=== PATIENT | female | born 1935 | race Caucasian/White ===

== ENCOUNTER 2019-08-22 10:49 | Inpatient (IN) ==
[2019-08-22 12:01] LABS: BASO# 0.01 X1000 (0.0-0.2); BASO% 0.1 % (0.0-0.8); EOS# 0.03 X1000 (0.0-0.7); EOS% 0.3 % (0.0-10.0); HEMATOCRIT 36.1 % (37.0-47.0); HEMOGLOBIN 11.7 g/dL (12.0-16.0); IMM GRAN# 0.02 X1000 (0.0-0.04); IMM GRAN% 0.2 % (0.0-0.5); LYMPH# 0.44 X1000 (1.2-3.4); LYMPH% 4.4 % (20.5-51.1); MCH 31.8 PG (27-31); MCHC 32.4 g/dL (33-37); MCV 98.1 FL (81-99); MONO# 0.75 X1000 (0.11-0.59); MONO% 7.4 % (1.7-9.3); MPV 9.5 FL (7.4-10.4); NEUT# 8.84 X1000 (1.4-6.5); NEUT% 87.6 % (42.2-75.2); PLT 351 X1000 (130-400); RBC 3.68 XMIL (4.2-5.4); RDW 12.8 % (11.5-14.5); WBC 10.09 X1000 (4.8-10.8)
[2019-08-22 12:11] LABS: ALBUMIN 3.4 g/dL (3.5-5.0); CALCIUM 8.8 mg/dL (8.8-10.2); CREATININE 1.1 mg/dL (0.5-0.9); POTASSIUM 5.1 mmol/L (3.5-5.1); TOTAL BILIRUBIN 0.5 mg/dL (0.20-1.00)
[2019-08-22] MEDS ORDERED: LEVAQUIN 500 MG/D5W 500 MG/100 ML IVPB IV ONE (12:11)
--- NOTE | 2019-08-22 12:11 | Diag Imaging Result Doc PS360 ---
EXAM: CHEST-2 VIEWS HISTORY: SOB TECHNIQUE: Two views COMPARISON: 09/01/2012 FINDINGS: There is a moderate-sized right pleural effusion with basilar atelectasis and pneumonia. The heart is enlarged. There is a left-sided pacemaker. No pulmonary edema. No left pleural effusion. Compressed T12 vertebra. Prominent atherosclerosis. IMPRESSION: 1.Right pleural effusion with basilar atelectasis and infiltrates 2.Cardiomegaly 3.Compressed T12 vertebra Electronically signed by Floyd Eason 08/22/2019 12:08 PM
--- NOTE | 2019-08-22 12:16 | PROVIDER DOCUMENTATION ---
This chart was entered by Sima Sebastian Scribe, acting as scribe for China Smyth CRNP. HPI-Respiratory General - General Chief Complaint: Shortness of Breath Stated Complaint: SOB Time Seen by Provider: 08/22/19 11:05 Source: patient Allergies/Adverse Reactions: Patient Allergies Allergy/AdvReac Type Severity Reaction Status Date / Time Penicillins Allergy Unknown Unknown Verified 09/01/12 10:12 Sulfa (Sulfonamide Allergy Unknown Unknown Verified 09/01/12 10:12 Antibiotics) Home Medications: Home Medication List Medication Instructions Recorded Confirmed Last Taken Type Amlodipine [Norvasc] 10 mg PO DAILY 08/22/19 08/22/19 08/22/19 History Capecitabine [Xeloda] 1,500 mg PO DIRECTED 08/22/19 08/22/19 Unknown History Carvedilol 6.25 mg PO DAILY 08/22/19 08/22/19 08/22/19 History CefDINIR [Omnicef] 300 mg PO BID 08/22/19 08/22/19 Unknown History Levofloxacin [Levaquin] 500 mg PO DAILY 08/22/19 08/22/19 Unknown History Metoclopramide [Reglan] 10 mg PO Q6H PRN PRN 08/22/19 08/22/19 Unknown History Ondansetron HCl [Zofran] 4 mg PO Q6H PRN PRN 08/22/19 08/22/19 Unknown History - History of Present Illness-Resp Nature of Presenting Problem: 84yof presents to ED cc congested cough and SOB that is getting worse since onset Sunday. Pt reports she was recently treated with Cefdenir & Levaquin for Sinusitis but was unable to take correctly. Pt is ill appearing but in no acute distress upon exam. She does have breast cancer and is being treated with PO chemo by Dr. Kraus. Severity in ED: reports: moderate Onset/Duration: reports: 2 days ago Timing: reports: still present Cough Quality/Degree: reports: moderate Current Respiratory Medication Therapy: Initiated see nurses note Associated Symptoms: reports: cough, shortness of breath, short of breath Similar Symptoms Previously?: Yes Recently seen or treated by another doctor?: Yes (recently saw PCP) Review of Systems - Adult - REVIEW OF SYSTEMS - ADULT Constitutional: reports: see HPI. denies: chills, fever, fatique Eyes: reports: no symptoms reported Ears, Nose, Mouth & Throat: reports: no symptoms reported Cardiovascular: reports: no symptoms reported Respiratory: reports: see HPI, cough (congested), shortness of breath. denies: wheezing Gastrointestinal: reports: no symptoms reported Genitourinary: reports: no symptoms reported Musculoskeletal: reports: no symptoms reported Integumentary: reports: no symptoms reported Neurological: reports: no symptoms reported Psychiatric: reports: no symptoms reported Endocrine: reports: no symptoms reported Hematologic/Lymphatic: reports: no symptoms reported Allergic/Immunologic: reports: no symptoms reported All Other Systems: Reviewed and Negative Past History - Adult - PAST MEDICAL HISTORY-ADULT Review of Records: reports: Nursing Assessment Review, Medications Reviewed, Social history reviewed & non-contributory. Major Childhood Illnesses: reports: denies history Cardiovascular: reports: denies history Respiratory: reports: denies history Gastrointestinal: reports: denies history Obstetrical/Gynecological: reports: denies history Genitourinary: reports: denies history Musculoskeletal: reports: denies history Neurological: reports: denies history Endocrine/Immune: reports: denies history Other Conditions: reports: denies history - IMMUNIZATION STATUS Childhood Immunizations: See Nurse Assessment Flu Vaccine: See Nurse Assessment - FAMILY HISTORY Family History: reviewed, not pertinent - SOCIAL HISTORY Smoking: denies Physical Exam-General - PHYSICAL EXAM-ADULT Initial Vital Signs Reviewed: Yes - CONSTITUTIONAL General Appearance: alert. negative: appears well (ill appearing), anxious, com bative - EYES Eyes: PERRL/EOMI, pink conjunctivae. negative: photophobia - HEAD, EARS, NOSE, MOUTH & THROAT HENMT: normocephalic/atraumatic, moist mucous membranes. negative: angioedema - NECK Neck: supple - RESPIRATORY Respiratory: chest non-tender, normal breath sounds, no respiratory distress, rhonchi (scattered throughout). negative: crackles, wheezing - CARDIOVASCULAR Cardiovascular: normal peripheral pulses, regular rate, rhythm. negative: b radycardia, tachycardia - GASTROINTESTINAL (ABDOMEN) Abdominal Exam: normal bowel sounds, non tender, soft. negative: guarding - LYMPHATIC Lymphatic: no adenopathy - MUSCULOSKELETAL Extremity: other (pt is not ambulatory) - SKIN Integumentary: normal color. negative: diaphoresis, jaundice, rash - PSYCHIATRIC Psych/Mental Status: normal mood/affect, oriented x 3. negative: anxious, disheveled - HEART Score HEART Score: Age: > or = 65 Years Progress - PLAN OF CARE/RESULTS Progress/Plan/Lab Results: Vital Signs - 8 hr 08/22/19 11:00 Temperature 98 F Pulse Rate 78 Respiratory Rate 20 Blood Pressure 147/70 O2 Sat by Pulse Oximetry 91 L Laboratory Results - last 24 hr 08/22/19 08/22/19 08/22/19 11:39 11:39 11:39 WBC 10.09 RBC 3.68 L Hgb 11.7 L Hct 36.1 L MCV 98.1 MCH 31.8 H MCHC 32.4 L RDW Std Deviation 12.8 Plt Count 351 MPV 9.5 Immature Gran % (Auto) 0.2 Neut % (Auto) 87.6 H Lymph % (Auto) 4.4 L Bledsoe % (Auto) 7.4 Eos % (Auto) 0.3 Baso % (Auto) 0.1 Immature Gran # (Auto) 0.02 Neut # (Auto) 8.84 H Lymph # (Auto) 0.44 L Bledsoe # (Auto) 0.75 H Eos # (Auto) 0.03 Baso # (Auto) 0.01 Sodium 135 L Potassium 5.1 Chloride 99 Carbon Dioxide 24 L Anion Gap 13 BUN 30 H Creatinine 1.1 H Estimated GFR/1.73 m2 48 BUN/Creatinine Ratio 27 Glucose 140 H Calculated Osmolality 279 Calcium 8.8 Total Bilirubin 0.50 AST 31 H ALT 19 Alkaline Phosphatase 84 Troponin T High Sens 18 Total Protein 7.0 Albumin 3.4 L Globulin 4.0 Albumin/Globulin Ratio 1.0 Plasma Lactate 08/22/19 11:39 WBC RBC Hgb Hct MCV MCH MCHC RDW Std Deviation Plt Count MPV Immature Gran % (Auto) Neut % (Auto) Lymph % (Auto) Bledsoe % (Auto) Eos % (Auto) Baso % (Auto) Immature Gran # (Auto) Neut # (Auto) Lymph # (Auto) Bledsoe # (Auto) Eos # (Auto) Baso # (Auto) Sodium Potassium Chloride Carbon Dioxide Anion Gap BUN Creatinine Estimated GFR/1.73 m2 BUN/Creatinine Ratio Glucose Calculated Osmolality Calcium Total Bilirubin AST ALT Alkaline Phosphatase Troponin T High Sens Total Protein Albumin Globulin Albumin/Globulin Ratio Plasma Lactate 1.1 Orders Category Date Time Status NEWS Score 2-4:Order NEWS Lactate Series NOW Care 08/22/19 11:04 Active CHEST-2 VIEWS [RAD] Stat Exams 08/22/19 11:05 Completed BLOOD CULTURE [BLDCUL] Stat Lab 08/22/19 11:05 Uncollected CBC WITH ELECTRONIC DIFF [HEME] Stat Lab 08/22/19 11:39 Completed COMPREHENSIVE METABOLIC PANEL [CHEM] Stat Lab 08/22/19 11:39 Completed Flu [INFLUENZA SCREEN PL] Stat Lab 08/22/19 12:04 Uncollected LACTATE, PLASMA [CHEM] Lab 08/22/19 11:39 Completed LACTATE, PLASMA [CHEM] Lab 08/22/19 14:15 Uncollected LACTATE, PLASMA [CHEM] Lab 08/22/19 17:15 Uncollected MAGNESIUM [CHEM] Stat Lab 08/22/19 11:39 Received TROPONIN T HIGH SENSITIVITY Stat Lab 08/22/19 11:39 Completed UA NIMS W/REFLEX CULT [URINALYSIS] Stat Lab 08/22/19 11:51 Uncollected Levofloxacin 500 mg/D5w [Levaquin 500 mg/D5w] Med 08/22/19 12:11 Active 500 mg in 100 ml IV NOW Oxygen Device Stat Oth 08/22/19 11:05 Active EKG [EKG] Stat Ther 08/22/19 11:05 Ordered Result Diagrams: 08/22/19 11:39 08/22/19 11:39 - XRAY 1 XRAY: Bilateral XRAY Study: Chest Impression: See EMR Report (IMPRESSION: 1.Right pleural effusion with basilar atelectasis and infiltrates 2.Cardiomegaly 3.Compressed T12 vertebra Electronically signed by Floyd Eason 08/22/2019 12:08 PM) - CONSULTS/PCP/HOSPITALIST Notification #1 *Consult/PCP/Hospitalist*: Dr. Verde Time Discussed: 12:16 Consult Disposition: Admit Departure - Departure Date of Disposition Decision: 08/22/19 Time of Disposition Decision: 12:14 DIAGNOSIS: Anemia, Pleural effusion, Pneumonia, CKD (chronic kidney disease) Disposition: ADMITTED INPATIENT 09 Certified Medical Emergency: Emergent Condition: Stable Additional Instructions: ED Follow Up Instructions: You have been treated by a care provider in the Emergency Department. These instructions are being provided to you so you can have an understanding of how to care for yourself upon discharge. Upon discharge from the Emergency Department, you are responsible for making arrangements for follow-up care by a physician of your choice. Take all prescribed medications as directed. Return to the Emergency Department immediately for any new or worsening symptoms. You may call the Physician Referral phone number at [phone] to obtain a list of Physicians who are taking new patients. Referrals and Follow-Ups: Adriel Cabrera [Primary Care Provider] - - Critical Care Note This patient required my direct & personal management of CC.: No Attestation - Physician/ ANT Attestation Patient care was provided by Advanced Practice Provider:: No Advanced Practice Provider:: China Smyth The physician spent face to face time with patient:: Yes Advanced Practice Provider documentation review:: Supervising physician onsite and consulted in the evaluation and care of this patient. The physician did have a face to face encounter with the patient. This chart was documented by the indicated scribe, (Sima Sebastian, [place]) and accurately reflects the services I performed and decisions made by me, China Smyth CRNP, as attested by the provider's signature.
[2019-08-22 12:32] LABS: INFLUENZA A NEGATIVE (NEGATIVE); INFLUENZA B NEGATIVE (NEGATIVE)
--- NOTE | 2019-08-22 12:56 | EKG Report ---
Test Performed on : 08/22/2019 12:10:24 PM Test Reason : sob Blood Pressure : / mmHG Vent. Rate : 079 BPM Atrial Rate : 079 BPM P-R Int : 124 ms QRS Dur : 100 ms QT Int : 364 ms P-R-T Axes : 043 -05 -27 degrees QTc Int : 417 ms Normal sinus rhythm. Inferior infarct (cited on or before 21-APR-2019) Cannot rule out Anterior infarct (cited on or before 21-APR-2019) Abnormal ECG When compared with ECG of 13-MAY-2019 11:06, (Unconfirmed) No significant change was found Unconfirmed Result
[2019-08-22 13:48] LABS: URINE SOURCE CLEAN CATCH
[2019-08-22 14:29] LABS: BILIRUBIN URINE NEGATIVE (NEGATIVE); BLOOD URINE NEGATIVE (NEGATIVE); COLOR YELLOW; GLUCOSE URINE NEGATIVE (NEGATIVE); KETONE URINE TRACE mg/dL (NEGATIVE); LEUKOCYTES URINE NEGATIVE (NEGATIVE); NITRITE URINE NEGATIVE (NEGATIVE); PROTEIN URINE 50 mg/dL (NEGATIVE); SP GRAVITY URINE 1.031; TURBIDITY URINE CLEAR (CLEAR); UROBILINOGEN URINE NORMAL (NORMAL)
[2019-08-22 14:33] LABS: UR EPITHELIAL CELLS <10 /HPF (<10); URINE BACTERIA NEGATIVE /HPF; URINE RBC <10 /HPF (<10); URINE WBC <10 /HPF (<10)
[2019-08-22] MEDS ORDERED: REGLAN PO PRN (15:02)
[2019-08-22] MEDS ORDERED: NS 1,000 ML IV SCH (15:02)
[2019-08-22] MEDS ORDERED: TYLENOL PO PRN (15:02)
[2019-08-22] MEDS: DUONEB (A & A) INH SCH ×3 (16:20→23:30)
[2019-08-22] MEDS: LOVENOX SUBQ SCH (16:49)
--- NOTE | 2019-08-22 18:12 | HISTORY AND PHYSICAL ---
PRIMARY CARE PHYSICIAN: Dr. Cabrera. ONCOLOGIST: Dr. Kraus. CHIEF COMPLAINT: Shortness of breath and congestion over the last several days that progressively worsened. HISTORY OF PRESENTING ILLNESS: This is an 84-year-old female who presents to [facility] ER with complaints of a congested cough and shortness of breath that has worsened since its onset of Sunday. She was recently treated with cefdinir and Levaquin for a sinusitis but did not take the medications correctly and continued to feel bad. She is currently receiving oral chemotherapy for breast cancer followed by Dr. Kraus. Workup showed her saturating 91% on room air. Influenza A and B were both negative. Chest x-ray showed a moderate-sized right pleural effusion with basilar atelectasis and pneumonia, cardiomegaly, so she will be admitted to the [facility] for further evaluation and treatment. PAST MEDICAL HISTORY: Hypertension, hyperlipidemia, left ankle fracture, and breast cancer. PAST SURGICAL HISTORY: Hysterectomy and cholecystectomy. FAMILY HISTORY: Reviewed and noncontributory. SOCIAL HISTORY: She currently lives alone. Denies any tobacco, alcohol or illicit drug use. ALLERGIES: Penicillin and sulfa. HOME MEDICATIONS: We will hold Omnicef 300 mg p.o. b.i.d., Levaquin 500 mg p.o. daily, and Zofran 4 mg p.o. q.6 hours p.r.n. We will continue the following: Norvasc 10 mg p.o. daily. Xeloda 1500 mg p.o. as directed and she takes it 1 daily for 14 days and then hold for 7 days, carvedilol 6.25 mg p.o. daily, Reglan 10 mg p.o. q.6 hours p.r.n. LABORATORY DATA: Showed a white blood cell count of 10.09, hemoglobin 11.7, hematocrit 36.1, platelets 351,000. Sodium 135, potassium 5.1, chloride 99, CO2 24, BUN of 30, creatinine 1.1, glucose 140, magnesium 2.2. Troponin T high-sensitivity 18. Plasma lactate 1.1. Urinalysis was negative. Influenza A and B were both negative. Chest x-ray showed a moderate-sized right pleural effusion with basilar atelectasis and infiltrates, cardiomegaly and a compressed T12 vertebrae. EKG showed normal sinus rhythm at 79. REVIEW OF SYSTEMS: She denied any fever, chills, blurred vision, dizziness, chest pain. She has had a cough, shortness of breath, fatigue. Denied any abdominal pain, constipation, diarrhea, burning or hurting with urination. PHYSICAL EXAMINATION: VITAL SIGNS: On arrival, she had a temperature of 98 degrees, pulse 78, respirations 20, blood pressure 147/70, saturating 91% on room air currently saturating 94% on 2 L. GENERAL: This is an 84-year-old female who is lying in the bed and answers questions appropriately. HEENT: Normocephalic, atraumatic. Normal ENT inspection. Oropharynx and nares are clear. EYES: Pupils are equal, round, reactive to light and accommodation. Extraocular movements are intact. NECK: Normal inspection. Normal range of motion. LUNGS: With scattered rhonchi throughout entire posterior lung red. Equal lung expansion. Chest wall movement noted. HEART: Regular rate and rhythm. No murmurs, rubs, or gallops. ABDOMEN: Soft, nontender, nondistended. Bowel sounds are present x4 quadrants. MUSCULOSKELETAL: She had 5/5 strength x4 extremities. NEUROLOGICAL: The cranial nerves 2-12 appear grossly intact. ASSESSMENT: 1. Moderate-sized right pleural effusion. 2. Right side pneumonia. 3. Hypertension. 4. Breast cancer with chemotherapy ongoing. PLAN: She was transferred to the [facility]. Placed on telemetry O2 per protocol and incentive spirometry. Healthy heart diet. Continue her home medications as previously identified. Give her Levaquin 500 mg IV q. 24. Recheck a CBC, BMP in the a.m. Further orders after seen by attending. Dictated by YOLANDA Dietz for De Dale MD cc: YOLANDA Dietz MD
[2019-08-22] MEDS: PATIENT'S OWN MED PO SCH (20:58)
--- NOTE | 2019-08-23 00:01 | HISTORY AND PHYSICAL ---
ADDENDUM: Patient is a very pleasant 84-year-old female who has a known history of breast cancer and metastases. She presented to the hospital with a cough, shortness of breath and has a large pleural effusion. Certainly concerned that this may be a malignant effusion. We are going to transfer to [facility] [place] and I expect she will need to have this [*] cc: De Dale MD
[2019-08-23] MEDS: DUONEB (A & A) INH SCH ×6 (03:49→22:55)
[2019-08-23 07:52] LABS: BASO# 0.01 X1000 (0.0-0.2); BASO% 0.1 % (0.0-0.8); EOS# 0.01 X1000 (0.0-0.7); EOS% 0.1 % (0.0-10.0); HEMATOCRIT 31.1 % (37.0-47.0); IMM GRAN# 0.02 X1000 (0.0-0.04); IMM GRAN% 0.3 % (0.0-0.5); LYMPH# 0.48 X1000 (1.2-3.4); LYMPH% 6.1 % (20.5-51.1); MCH 31.7 PG (27-31); MCHC 32.2 g/dL (33-37); MCV 98.7 FL (81-99); MONO# 0.66 X1000 (0.11-0.59); MONO% 8.5 % (1.7-9.3); MPV 9.7 FL (7.4-10.4); NEUT# 6.63 X1000 (1.4-6.5); NEUT% 84.9 % (42.2-75.2); PLT 305 X1000 (130-400); RBC 3.15 XMIL (4.2-5.4); RDW 12.6 % (11.5-14.5); WBC 7.81 X1000 (4.8-10.8)
[2019-08-23 08:23] LABS: CALCIUM 8.4 mg/dL (8.8-10.2); CREATININE 1.2 mg/dL (0.5-0.9); POTASSIUM 4.4 mmol/L (3.5-5.1)
[2019-08-23] MEDS: NORVASC PO SCH (10:04)
[2019-08-23] MEDS: PATIENT'S OWN MED PO SCH (10:04)
[2019-08-23] MEDS: COREG PO SCH (10:04)
--- NOTE | 2019-08-23 10:15 | PROGRESS NOTE ---
DATE: 08/23/2019 SUBJECTIVE: This is a patient of Dr. Cabrera, followed by Dr. Kraus, I think being treated for breast cancer. She presented with shortness of breath, congestion over a several day course which had worsened, went to [facility]. An 84-year-old female presented to [facility] with complaints of congestion, cough, shortness of breath that worsened since Sunday. Recently treated with cefdinir and Levaquin for sinusitis, but did not take the medication correctly and continued to feel bad. Currently receiving oral chemotherapy for breast cancer, followed by Dr. Kraus. Workup showed saturating around 91% on room air. Influenza A and B nasal swabs were negative. Chest x-ray showed a moderate-sized right pleural effusion with right basilar atelectasis and pneumonia, cardiomegaly, so came over here [facility]. PAST MEDICAL HISTORY: Hypertension, hyperlipidemia, left ankle fracture, and breast cancer, status post hysterectomy, status post cholecystectomy. OBJECTIVE: General: On exam today, she says she is breathing better, feels comfortable sitting up. Vital signs: Remains afebrile, pulse 90, respirations 18, blood pressure 149/66. HEENT: Pupils are equal and round. Lungs: Clear in all lung red. Cardiovascular: Regular rhythm and rate without murmur or S3. Abdomen: Soft. Skin: Warm and dry. URINE OUTPUT: 400 mL thus far. LABORATORY DATA: Reviewed. [place] count was [address]1021, hematocrit 36, platelet count 351,000. Sodium 135, potassium 5.1, chloride 99, bicarb 24, BUN 30, creatinine 1.1, calcium 8.8. AST 31, ALT is 19. Urinalysis unremarkable. IMAGING: Her chest x-ray, right pleural effusion, basilar atelectasis and infiltrate. She has a compressed T4 vertebra that looks like it is probably old. Cardiomegaly. REVIEW OF ORDERS: Continue present orders. She is on Tylenol 650 mg p.o. q.4 hours p.r.n., Norvasc 10 mg a day, Coreg 6.25 mg a day, Levaquin 500 mg IV q.24 hours, and we will make sure Dr. Kraus is involved and they had questions, they want a Pulmonary consult in regards to the effusion. cc: Scout Chisholm MD
[2019-08-23] MEDS: LEVAQUIN 500 MG/D5W 500 MG/100 ML IVPB IV SCH (12:12)
--- NOTE | 2019-08-23 15:11 | Diag Imaging Result Doc PS360 ---
EXAM: CT THORAX W/O CONTRAST HISTORY: breast cancer with new effusion TECHNIQUE: CT chest without contrast COMPARISON: None. FINDINGS: There is a large right-sided pleural effusion with right lung atelectasis. There are air bronchograms and infiltrates in the right middle and lower lobes. Trace left pleural fluid. Heart is not enlarged. There is a tiny pericardial effusion. There calcified right hilar lymph nodes. Prominent atherosclerosis. No aortic aneurysm. There are several sclerotic vertebra and there is collapse of a lower thoracic vertebra. IMPRESSION: 1.Large right pleural effusion with right lung atelectasis and infiltrates 2.Likely sclerotic bony metastases 3.Small pericardial effusion, but no significant cardiomegaly. This exam was performed using automated exposure control, adjustment of mA or kV according to patient size, and/or use of iterative reconstruction technique. Electronically signed by Floyd Eason 08/23/2019 3:08 PM
[2019-08-23] MEDS: LOVENOX SUBQ SCH (16:33)
--- NOTE | 2019-08-23 19:14 | PULMONOLOGY CONSULTATION ---
DATE: 08/23/2019 REQUESTING PHYSICIAN: Dr. Christofer Chisholm. REASON FOR CONSULT: Help with evaluation and treatment. HISTORY OF PRESENT ILLNESS: This is an 84-year-old female with a history of bilateral breast cancer, currently receiving oral chemotherapy with Xeloda per Dr. Kraus. She presented to the emergency room with shortness of breath and congestion that had progressed. She had a room air saturation of 91% on arrival to the emergency room. Chest x-ray showed a moderate-sized right pleural effusion with basilar atelectasis/pneumonia. She was transferred to [facility] for further evaluation. Ms. Gilmore was evaluated by her primary care physician for shortness of breath and cough. She was given Omnicef on July 22, followed by Levaquin 500 mg on August 15. She has failed outpatient treatment. PAST MEDICAL HISTORY: Hypertension, hyperlipidemia, left ankle fracture, bilateral breast cancer. PAST SURGICAL HISTORY: Hysterectomy and cholecystectomy. SOCIAL HISTORY: She lives alone. Denies alcohol, tobacco, or illicit drug use. She does have children that live close and are active in her care. ALLERGIES: Penicillin and sulfa. FAMILY HISTORY: Positive for hypertension and heart disease. REVIEW OF SYSTEMS: Discussed with patient with pertinent positives stated in the HPI. She denied any syncope or dizziness, any chest pain or palpitations, any fevers or chills, any nausea, vomiting, diarrhea or constipation, black or bloody vomitus or stools, hematuria, dysuria, frequency or urgency. PHYSICAL EXAMINATION: General: This is an 84-year-old female who is sitting in the chair in no distress. Vital Signs: Blood pressure is 149/66 with a heart rate of 94, respirations 18. Temperature is 98.2 oral with O2 saturations that are 91% to 92% on 2 L nasal cannula. Eyes: Pupils equal, round, react to light. EOMs are intact. Sclerae anicteric. HEENT: Head is normocephalic, atraumatic. Mucous membranes are moist. Neck: Supple with trachea midline. Cardiovascular: Regular rate and rhythm. S1 and S2 are appreciated. Calves are nontender bilaterally. Peripheral pulses palpable x4 extremities. Pulmonary: Breath sounds are clear on the left and in the right upper lobe. Breath sounds are diminished in the right middle and lower lobes. Chest does rise and fall symmetrically with respiration Gastrointestinal: Abdomen is soft, nontender, nondistended. Bowel sounds in all 4 quadrants. Neurologic: She is alert oriented x3. Skin: Warm and dry. LABS: WBCs 7.8 with hemoglobin 10, hematocrit 31, and platelets of 305. Sodium 137, potassium 4.4, BUN 28, creatinine 1.2 with a glucose of 108. Urinalysis is essentially negative. Influenza A and B are negative. Blood cultures are pending. Chest x-ray revealed right pleural effusion with basilar atelectasis and infiltrates, cardiomegaly, and compressed T12 vertebra. ASSESSMENT: 1. Moderate-sized right pleural effusion. 2. Right-sided pneumonia. 3. Hypertension. 4. Dyspnea. 5. Breast cancer with ongoing chemotherapy. 6. Chronic kidney disease with a baseline creatinine of 1.1. PLAN: 1. CT of the thorax without contrast. 2. Continue with supplemental oxygen. 3.continue home medications as per primary team. 4. Bronchodilators every 4 hours. 5. Continue Levaquin as per primary team. 6. For deep venous thrombosis prophylaxis, we will continue Lovenox. 7. Notified Dr. Kraus of the patient's admission. We discussed the patient's medication Xeloda, and he stated to hold this medication while in the hospital. Thank you for allowing us participate in this patient's care. Dictated by YOLANDA Mayer for Cam Anderson MD cc: YOLANDA Mayer MD [facility]
[2019-08-24] MEDS: DUONEB (A & A) INH SCH ×5 (03:48→19:50)
--- NOTE | 2019-08-24 08:35 | PROGRESS NOTE ---
DATE: 08/24/2019 SUBJECTIVE: She is breathing better, doing better. This is an 84-year-old with history of bilateral breast cancer, currently receiving oral chemotherapy with Xeloda per Dr. Kraus, presented to the emergency room with shortness of breath and congestion, which has been progressing. On room air, had a saturation of 91% in the emergency room. X-ray showed moderate-sized right pleural effusion, basilar atelectasis, pneumonia. She has history of hypertension, hyperlipidemia, left ankle fracture, bilateral mastectomies, status post hysterectomy and cholecystectomy. ASSESSMENT AND PLAN: Moderate-sized right pleural effusion and right-sided pneumonia suspected. She does have chronic kidney disease. Baseline creatinine is 1.1, and that seems to be stable. REVIEW OF ORDERS: She is on Norvasc 10 mg a day, Coreg 6.25 mg a day, Levaquin 500 mg IV every [address] shows large right pleural effusion with right lung atelectasis and infiltrates, likely sclerotic bony metastasis, small pericardial effusion, but no significant cardiomegaly. Will continue present orders. I do not know that we are planning on trying to do pleurocentesis. It looks like pneumonia with atelectasis. Will see what Dr. Anderson wants to do. cc: Scout Chisholm MD
[2019-08-24] MEDS: NORVASC PO SCH (08:45)
[2019-08-24] MEDS: COREG PO SCH (08:45)
--- NOTE | 2019-08-24 10:23 | PROGRESS NOTE ---
DATE: 08/24/2019 SUBJECTIVE: Ms. Gilmore is feeling better. Breathing is better. Her son was at the bedside. Remains afebrile. OBJECTIVE: Vital Signs: Temperature 98 degrees, pulse 82, respirations 16, blood pressure 114/47. HEENT: Pupils are equal and round. Lungs: Clear in all lung red. Cardiovascular: Regular rhythm and rate without murmur or S3. Abdomen: Soft, nondistended, nontender. Positive bowel sounds. No hepatosplenomegaly. Extremities: Without clubbing, cyanosis, or edema. She has remained afebrile, temperature 98 degrees, pulse 82, respirations 16, blood pressure 114/47 pupils are equal and round. No distended neck veins. Her lungs are clear. Right base with some rhonchi. Cardiovascular: Regular rhythm rate without murmur or S3. Abdomen is soft. Skin is warm and dry. No pedal edema. ASSESSMENT AND PLAN: 1. Moderate sized right pleural effusion. Right-sided pneumonia. Continue present antibiotics. She is on Levaquin. 2. History of hypertension. 3. History of breast cancer. Ongoing chemotherapy. 4. Chronic kidney disease. cc: Scout Chisholm MD MTDD
[2019-08-24] MEDS: LEVAQUIN 500 MG/D5W 500 MG/100 ML IVPB IV SCH (13:28)
--- NOTE | 2019-08-24 17:36 | PULMONOLOGY PROGRESS NOTE ---
DATE: 08/24/2019 SUBJECTIVE: The patient is sitting up in the chair, talking with family members. She has no complaints. OBJECTIVE: Vital signs: Blood pressure is 135/65 with heart rate of 83, respirations 16, temperature 98.5 degrees oral with O2 saturations that are 97 on 2 L nasal cannula. HEENT: Head is normocephalic, atraumatic. Mucous membranes are moist. Pupils equal, round, react to light. EOMs are intact. Sclerae anicteric. Neck: Is supple. Trachea midline. Cardiovascular: Regular rate and rhythm. S1 and S2 are appreciated. She has no murmur. Extremities: She has no lower extremity edema. Calves are nontender bilateral with peripheral pulses palpable x4 extremities. Pulmonary: Breath sounds are diminished on the right, clear otherwise. Chest rises and falls symmetric with respiration. No increased work of breathing noted. Gastrointestinal: Abdomen is soft, nontender, nondistended with bowel sounds in all 4 quadrants. Neurologic: She is alert and oriented. LABS: There are no labs today. BLOOD CULTURES: Revealed no growth after 48 hours. IMAGING: Chest CT on revealed a large right pleural effusion with right lung atelectasis and infiltrates, likely sclerotic bony metastasis, small pericardial effusion, but no significant cardiomegaly. IMPRESSION: This is an 84-year-old female with 1. Moderate size right pleural effusion. 2. Right-sided pneumonia. 3. Hypertension. 4. Bilateral breast cancer with ongoing chemotherapy. 5. Chronic kidney disease with a baseline creatinine of 1.1. 6. Dyspnea. PLAN: 1. Continue with supplemental oxygen as needed. 2. Continue with bronchodilators, antibiotics, per primary team. 3. Will hold Lovenox and schedule for a thoracentesis under fluoro per Radiology tomorrow. PTT, PT/INR in the morning. She will be NPO after midnight. Dictated by YOLANDA Mayer for Cam Anderson MD cc: YOLANDA Mayer MD [facility]
[2019-08-24] MEDS: LOVENOX SUBQ SCH (22:19)
[2019-08-25] MEDS: DUONEB (A & A) INH SCH ×7 (03:42→23:26)
[2019-08-25 08:35] LABS: INR 1.29; PROTIME 16.3 Seconds (11.0-16.0)
--- NOTE | 2019-08-25 10:37 | Diag Imaging Result Doc PS360 ---
EXAM: CHEST-2 VIEWS INDICATION: POST THORA TECHNIQUE: 2 views COMPARISON: 08/22/2019 FINDINGS: There has been a decrease in the amount of pleural fluid on the right as a result of a recent thoracentesis. There is still a small to moderate amount of pleural fluid remains even after aspirating 1500 mL during the thoracentesis. There is improvement of the adjacent atelectasis at the right lung base. There is no evidence of pneumothorax status post thoracentesis. No new consolidation is identified. Cardiac silhouette is stable. IMPRESSION: No evidence of pneumothorax status post right thoracentesis. Electronically signed by Henry Lamar 08/25/2019 10:35 AM
[2019-08-25] MEDS: COREG PO SCH (11:00)
[2019-08-25] MEDS: NORVASC PO SCH (11:01)
[2019-08-25] MEDS: LEVAQUIN 500 MG/D5W 500 MG/100 ML IVPB IV SCH (11:01)
[2019-08-25 11:42] LABS: BODY FLUID SOURCE PLEURAL FLUID; SPECIMEN PLEURAL FLUID; WBC BF 768 /cumm
[2019-08-25 11:44] LABS: MONOS 70 %; POLYS 30 %
--- NOTE | 2019-08-25 12:00 | Diag Imaging Result Doc PS360 ---
EXAM: US THORACENTESIS W/IMAGE GUIDE INDICATION: PLEURAL EFFUSION, RIGHT TECHNIQUE: COMPARISON: None. FINDINGS: Risks, benefits, and alternatives were discussed with the patient and informed consent was obtained. Patient was prepped and draped in sterile fashion and local anesthesia was achieved with 1% lidocaine solution. Using ultrasound guidance, a large bore catheter was inserted into the right pleural space and 1.5 L of straw-colored serous fluid was aspirated. There were no known complications. A postprocedural radiograph showed no pneumothorax. IMPRESSION: Technically successful ultrasound-guided right thoracentesis. Electronically signed by Henry Lamar 08/25/2019 11:58 AM
[2019-08-25 12:35] LABS: AMYLASE BODY FLUID 41 U/L; GLUCOSE BODY FLUID 120 mg/dL; LDH BODY FLUID 423 U/L; TOTAL PROT BODY FLUID 4.1 g/dL
--- NOTE | 2019-08-25 14:03 | HEMO/ONC CONSULTATION ---
DATE: 08/25/2019 REASON FOR CONSULTATION: Ms. 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 HISTORY OF PRESENT ILLNESS: This is an 84-year-old female, who presented to the ER with complaints of cough, congestion and shortness of breath that has worsened since Sunday. She states her PCP had recently given her Ceftin and Levaquin for sinusitis, but apparently she did not take the medications correctly and continued to feel bad. Her ER workup showed she was saturating 91% on room air. Influenza A and B were negative. Chest x-ray showed moderate size right pleural effusion, basilar atelectasis and pneumonia. The patient was admitted for further evaluation. The patient has been treated by Dr. Kraus since 2017. Most recently, her right breast cancer metastasized to her bone this past fall. She was originally started on Kisqali, which was stopped due to continued disease progression. On 08/18, last Sunday the patient was started on Xeloda. She is starting at a lower dose of 1500 mg b.i.d. We had planned to titrate up the dose as she tolerated. However I will have to clarify her last dose which I suppose was the morning of the when she came in. PAST MEDICAL HISTORY: Hypertension, hyperlipidemia, left ankle fracture, right breast metastatic carcinoma. PAST SURGICAL HISTORY: Hysterectomy, cholecystectomy, pacemaker placement, ankle surgery. ALLERGIES: To sulfa and penicillin. MEDICATIONS: Norvasc, Xeloda, carvedilol and Reglan. REVIEW OF SYSTEMS: The patient complains that overall she does not feel well. She has no specific complaint. VITAL SIGNS: Temperature 97.8 degrees, pulse rate 87, respiratory rate 19, blood pressure 132/57, O2 saturation 99% on room air. She is in 0/10 pain. PHYSICAL EXAMINATION: General: The patient appears comfortable and in no acute distress. She is very difficult to understand. HEENT: Sclerae is anicteric. PERRLA. Oral mucosa is normal. Cardiovascular: Normal S1, S2. Heart rate and rhythm regular. Respiratory: Lung sounds are clear to auscultation, although somewhat diminished. Extremities: No lower extremity edema noted. Gastrointestinal: Soft, nondistended, nontender. Positive bowel sounds. LABORATORY: No labs drawn today. RADIOLOGY: The patient had an ultrasound-guided thoracentesis that was successful. Her post chest x-ray shows no evidence of pneumothorax. Results: Fluid on the right as a result of the thoracentesis, 1500 mL were aspirated. ASSESSMENT AND PLAN: 1. Metastatic right breast cancer with metastasis to the bones. The patient was being treated with Xeloda and Xgeva. Treatment currently on hold. 2. Moderate-size right pleural effusion. Right-sided pneumonia. Continue present antibiotics. Continue treatment per hospitalist and Pulmonology. Since my assessment, patient has had a thoracentesis. We will await the pathology of the fluid. Continue antibiotics and symptomatic treatment. Dictated by YOLANDA Barahona for Casey Kraus MD As above. Admitted with symptomatic effusion, likely malignant. Feels better with thoracentesis. Evaluate cytology. Discussed poor prognosis with family. Casey Kraus MD cc: Casey Kraus MD [facility]TD[facility]
--- NOTE | 2019-08-25 19:12 | PROGRESS NOTE ---
DATE: 08/25/2019 SUBJECTIVE: Ms. Gilmore is breathing better. She had underwent thoracentesis today. Her procedure was done by Dr. Henry Lamar successfully. Ultrasound-guided right thoracentesis jose off about 1.5 L of straw-colored serous fluid. No complications. OBJECTIVE: General: She is breathing a lot better, feels better. Vital Signs: Temperature 97.8 degrees, pulse 82, respirations 18, blood pressure 125/49. HEENT: Pupils are equal and round. Lungs: Clear in all lung red. Cardiovascular: Regular rhythm and rate without murmur or S3. Abdomen: Soft. Skin: Warm and dry. ASSESSMENT AND PLAN: 1. Metastatic right breast cancer with metastasis to the bone. Patient being treated with Xeloda and Xgeva, currently treatment on hold. 2. Came in with a moderately sized right pleural effusion, right-sided pneumonia. Continue present antibiotics. Pulmonary is involved and had thoracentesis. She is breathing a lot easier at this time. 3. Hypertension. 4. Chronic kidney disease. Aware. We will see what the studies on the fluid show, and at present time continue Levaquin 500 mg IV q.24 hours. cc: Scout Chisholm MD
[2019-08-26] MEDS: DUONEB (A & A) INH SCH ×4 (04:01→15:09)
--- NOTE | 2019-08-26 07:07 | PULMONOLOGY PROGRESS NOTE ---
DATE: 08/25/2019 SUBJECTIVE: The patient is awake, alert, and conversant. She reports her breathing has significantly improved following thoracentesis. OBJECTIVE: Vital Signs: The patient has been afebrile for the last 24 hours. Blood pressure 132/57, heart rate 87, respiratory rate 19, oxygen saturation 99%. HEENT: Pupils are equal and reactive. Oropharynx appears clear. Neck is supple. Chest reveals continued decreased breath sounds in the right base. Cardiac Examination: S1-S2. Abdomen is soft. Extremities are without edema. Laboratories: Pleural fluid is exudative in character, with a total protein of 4.1 and an LDH of 423. Glucose and amylase are normal. Chest x-ray following thoracentesis continues to demonstrate a small to moderate pleural effusion after 1500 mL thoracentesis. IMPRESSION: An 84-year-old with metastatic breast cancer with a new exudative pleural effusion. I suspect that she has a malignant effusion. PLAN: 1. Continue oxygen for hypoxemic respiratory failure. 2. Await cytology report. 3. Consider PleurX catheter. cc: Cam Anderson MD
[2019-08-26] MEDS: NORVASC PO SCH (09:14)
[2019-08-26] MEDS: COREG PO SCH (09:14)
[2019-08-26] MEDS: LEVAQUIN 500 MG/D5W 500 MG/100 ML IVPB IV SCH (11:47)
--- NOTE | 2019-08-26 13:20 | HEMO/ONC PROGRESS NOTE ---
DATE: 08/26/2019 SUBJECTIVE: Ms. Gilmore states she is feeling better this morning. She is very adamant about going home today. She states she feels well enough to go home and that she can walk and take care of herself at home. She is breathing better since her thoracentesis. OBJECTIVE: Vital Signs: Temperature 98.1 degrees, pulse rate 76, respiratory rate 20, blood pressure 112/78, O2 saturation 94% on nasal cannula at 2 L. She is in 0/10 pain. PHYSICAL EXAMINATION: General: The patient is in no acute distress. She is in a pleasant mood. HEENT: Sclerae anicteric. PERRLA. Oral mucosa is normal. Cardiovascular: Normal S1, S2. Heart rate and rhythm regular. Respiratory: Decreased breath sounds to the right. Otherwise clear to auscultation. Extremities: No lower extremity edema noted. Abdomen: Soft, nontender, nondistended. LABORATORY: Plasma lactate 1.9. No other labs drawn. ASSESSMENT AND PLAN: 1. Metastatic right breast cancer with metastasis to the bones. The patient recently started treatment with Xeloda and Xgeva. Treatments are currently on hold while she is hospitalized. We will restart treatment when she is strong enough to come back to the clinic. 2. Moderate right-side pleural effusion, right-sided pneumonia. Continue patient on antibiotics. Thoracentesis improved patient's shortness of breath. We are assuming her effusion is likely malignant. Dr. Anderson suggests considering PleurX catheter. 3. Disposition. The patient was very adamant about going home today. From our standpoint, that is okay. Dictated by YOLANDA Barahona for Casey Kraus MD Exudative pleural effusion, most likely malignant. Cytology pending. Follow up outpatient. If reaccumulates, plan pleurex catheter, Discussed with Dr. Harris. Ok with discharge home from my standpoint. Casey Kraus MD cc: Casey Kraus MD [facility]
[2019-08-26 15:54] VITALS: BP 140/77
--- NOTE | 2019-08-26 19:02 | GENERAL SURGERY CONSULTATION ---
DATE: 08/26/2019 REASON FOR CONSULTATION: Malignant right effusion. CHIEF COMPLAINT: Shortness of breath. HISTORY OF PRESENT ILLNESS: This is an 84-year-old female with metastatic breast carcinoma. She has been treated with palliative chemotherapy for some time. She has had a reasonable response. She was admitted with increased work of breathing and presumed pneumonia several days ago. She developed a large right pleural effusion and underwent thoracentesis approximately 48 hours ago and had improvement in her symptoms. She continues to require O2, but in I was consulted to evaluate the patient for outpatient PleurX catheter. PAST MEDICAL HISTORY: Metastatic breast carcinoma, hypertension, hyperlipidemia. SURGICAL HISTORY: She has never had any thoracic procedure. She has a pacemaker, ankle surgery, hysterectomy, and cholecystectomy. MEDICATIONS: She is on Xeloda, but no anticoagulants. REVIEW OF SYSTEMS: Ten point review of system was performed and negative other than what is mentioned in HPI. FAMILY HISTORY: Reviewed and noncontributory. PHYSICAL EXAMINATION: She is afebrile, pulse 85, blood pressure 140/77 oxygen saturation 95%. She is on nasal cannula.General: She is alert, elderly appearing, in no acute distress. HEENT: No scleral icterus. No cervical mass. Cardiovascular: Normal rate. Pulmonary: No increased work of breathing. There is no crepitus along the right chest wall. Abdomen: Soft. Integument: Warm, dry. Psychiatric: Appropriate affect. Neurologic: She is somewhat tremulous on exam. It appears chronic. Her labs are reviewed from the . Her white count was 7, hematocrit 31, platelets 305,000. INR is 1.29. Creatinine is 1.2. I reviewed her CT scan of her chest and chest x-ray following thoracentesis. ASSESSMENT/PLANS: 84-year-old female with most likely a malignant right-sided effusion. We discussed pros and cons, risks and benefits of a PleurX catheter. We will see me this week in the office and we will plan for possible PleurX next week, hopefully prior to her redeveloping reaccumulating large effusion, although she does continue to have quite a bit of fluid noted on her x-ray. We discussed signs and symptoms of worsening. I have given directions to my office. They will call with any issues but we will see her as an outpatient. cc: Merry Harris MD
--- NOTE | 2019-08-27 09:10 | DISCHARGE SUMMARY ---
ADMISSION DATE: 08/22/2019 DISCHARGE DATE: 08/26/2019 DISCHARGE DIAGNOSES: 1. New exudative pleural effusion, likely malignant effusion in a patient with metastatic breast cancer. 2. Metastatic breast cancer. 3. Chronic kidney disease, stable. 4. Hypertension, stable. PROCEDURES PERFORMED: 1. Chest x-ray dated 08/22/2019, the impression was right pleural effusion with bibasilar atelectasis and infiltrate, cardiomegaly, compressed T12 vertebra. 2. Chest CT scan dated 08/23/2019, the impression was large right pleural effusion with right lung atelectasis and infiltrates, likely sclerotic bony metastasis, small pericardial effusion, but no significant cardiomegaly. 3. Chest x-ray dated 08/25/2019, the impression was no evidence of pneumothorax, status post right thoracentesis. 4. Ultrasound-guided thoracentesis dated 08/25/2019, the impression was technically successful ultrasound-guided thoracentesis with 1.5 liters of straw-colored serous fluid aspirated. CONSULTATIONS: 1. Pulmonary Department, Dr. Anderson. 2. Hematology/Oncology Department, Dr. Kraus. HISTORY AND HOSPITAL COURSE: This is an 84-year-old female with a past medical history of hypertension, hyperlipidemia, metastatic breast cancer, hospitalized on 08/22/2019. Initially she presented to [facility], and then she was transferred to this hospital, [facility], because she needed to be evaluated by Pulmonary Department and Hematology/Oncology Department. The main problem was shortness of breath for the last several days, and it has been getting worse. She was recently treated with cefdinir and Levaquin for sinusitis, but she is still having shortness of breath, and apparently she was treated for sinusitis. She has been getting chemotherapy with Dr. Kraus. Influenza A and B were negative. Chest x-ray though showed a moderate-sized right pleural effusion, so when she was evaluated by Pulmonary Department we continued with the same treatment, and we did a thoracentesis, which removed around 1.5 liters of straw-colored fluid, likely this is malignant. She is feeling better today, and actually she wants to go home. I will ask for a home O2 evaluation first. The daughter is at the bedside. She already talked to Dr. Kraus, which is going to follow her up as an outpatient. He also recommended to call Dr. Krunal Harris if she gets short of breath to put a catheter inside her thoracic area so the fluid can be drained. She seems to understand and actually that was the patient's daughter's instructions. Dr. Kraus contacted me, and he is okay to discharge this patient home. She seems to be stable, and she really wants to go home, so I will send this patient home. Follow up with Dr. Kraus and Dr. Harris as needed, as well as her primary care doctor. Upon discharge, the patient was in a stable medical condition, tolerating p.o. It looks like she will be discharged with home O2. PHYSICAL EXAMINATION: Vital Signs: Temperature 98.3 degrees, pulse 85, respiratory rate 12, blood pressure 140/77, and oxygen saturation 95% on 2 liters of nasal cannula, on room air 88%. HEENT: Head normocephalic, no trauma. PERRLA. Neck: Supple. No JVD. No masses. Central trachea. Chest: Decreased breath sounds at both bases with some right crepitus at the base. Abdomen: Soft, nontender, nondistended. No hepatosplenomegaly. Extremities: Trace edema. No clubbing. No cyanosis. Neurological: The patient is awake, alert. She is oriented x3. She does have probably some generalized weakness, but she wants to go home. LABORATORY: Lactate level today 1.9. From previous lab work on 08/23/2019, white blood cell count 7.8, hemoglobin 10, hematocrit 31.1, platelets 305,000. Sodium 137, potassium 4.4, chloride 101, bicarbonate 24, BUN 28, creatinine 1.2 glucose 108, calcium 8.4. DISCHARGE MEDICATIONS: Basically I will continue with her home medications, amlodipine 10 mg p.o. daily, Xeloda 1500 mg p.o. as directed, carvedilol 6.25 mg p.o. daily, cefdinir 300 mg p.o. b.i.d. as directed, levofloxacin 500 mg p.o. daily as directed, Reglan 10 mg p.o. every 6 hours as needed, and Zofran 4 mg p.o. every 6 hours as needed. TIME SPENT: The time spent discharging this patient was 20 minutes. cc: Chuck Valdez MD
== END 2019-08-26 16:59 | disposition home health service (06) | DRG 597 ==
LOC: P.ED 10:49 → SUATTDRO 10:50 → 3N 10:50
PROVIDERS: ATTEND Internal Medicine